=== PATIENT | male | born 1985 | race Caucasian/White ===

== ENCOUNTER 2021-01-09 18:58 | Emergency (ER) | payer SELFPAY ==
[~2021-01-09] VITALS: Ht 175.3 cm; Wt 94.0 kg
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
[2021-01-09] MEDS ORDERED: LIDOCAINE-MPF 1%, 5ML INFIL ONE (22:00)
[2021-01-09] MEDS ORDERED: CEPHALEXIN 500 MG CAPSULE PO ONE (22:00)
[2021-01-09] MEDS ORDERED: PLEASE ENTER ALLERGIES MC SCH (22:00)
[2021-01-09] MEDS ORDERED: SULFAMETH./TRIMETHOPRIM DS 800MG/160MG TABLET PO ONE (22:00)
[2021-01-09] MEDS ORDERED: LIDOCAINE-MPF 1%, 5ML ONE (22:18)
[2021-01-09] MEDS ORDERED: SULFAMETH./TRIMETHOPRIM DS 800MG/160MG TABLET ONE (22:18)
[2021-01-09] MEDS ORDERED: CEPHALEXIN 500 MG CAPSULE ONE (22:18)
[2021-01-09 22:23] VITALS: BP 120/72
[2021-01-09] MEDS ORDERED: BACITRACIN ZINC OINT 500U/GM, 0.9 GM ONE (22:27)
--- NOTE | 2021-01-09 22:44 | NUR ---
Patient/Caregiver given discharge instructions and they have confirmed that they understand the instructions. Patient ambulatory with steady gait. NAD, all questions answered appropriately, denies additional needs at this time. No personal belongings left in room after discharge. PT WOUNDS CLEANSED, BAACITRACIN APPLIED, AND BANDAGED TO HOSPITAL PROTOCOL PRIOR TO DC.
== END 2021-01-09 22:55 | disposition home or self-care (01) ==
LOC: ED 22:49
DX: L03.114 Cellulitis of left upper limb (principal); L03.113 Cellulitis of right upper limb; L02.512 Cutaneous abscess of left hand
CPT/HCPCS: 10060